=== PATIENT | female | born 1980 | race African-American/Black ===

== ENCOUNTER 2019-05-26 07:01 | Emergency (ER) | payer OTHER ==
[~2019-05-26] VITALS: Ht 160 cm; Wt 71.2 kg
[2019-05-26 08:33] VITALS: BP 97/58
[2019-05-26] MEDS ORDERED: NAPROSYN500 MG PO (08:43)
== END 2019-05-26 08:58 | disposition home or self-care (01) ==
LOC: ER 07:01
DX: S30.0XXA Contusion of lower back and pelvis, initial encounter (principal); S00.03XA Contusion of scalp, initial encounter; S60.511A Abrasion of right hand, initial encounter; S50.811A Abrasion of right forearm, initial encounter; E11.9 Type 2 diabetes mellitus without complications; F17.210 Nicotine dependence, cigarettes, uncomplicated; V49.9XXA Car occupant (driver) (passenger) injured in unspecified traffic accident, initial encounter; Y93.89 Activity, other specified; Y92.89 Other specified places as the place of occurrence of the external cause; Y99.8 Other external cause status